=== PATIENT | male | born 1955 | race African-American/Black ===

== ENCOUNTER 2016-10-10 14:22 | Emergency (ER) | payer SELFPAY ==
[~2016-10-10] VITALS: Ht 172.7 cm; Wt 63.5 kg
[2016-10-10 15:00] VITALS: BP 136/74
--- NOTE | 2016-10-10 15:20 | PHYS DOC ---
Past Medical History Past Medical History: MT Past Surgical History: Other Additional Past Surgical Histo: CARDIAC STENT Alcohol Use: None Drug Use: None Adult General Chief Complaint Chief Complaint: FLU SYMPTOM HPI HPI Patient is a 61 year old male who presents today with body aches, coughing, nasal congestion, and subjective fevers for one week. Review of Systems Review of Systems Constitutional: Subjective fevers and body aches Eyes: Denies change in visual acuity, redness, or eye pain [] HENT: nasal congestion Respiratory: Cough Cardiovascular: No additional information not addressed in HPI [] GI: Denies abdominal pain, nausea, vomiting, bloody stools or diarrhea [] : Denies dysuria or hematuria [] Musculoskeletal: Denies back pain or joint pain [] Integument: Denies rash or skin lesions [] Neurologic: Denies headache, focal weakness or sensory changes [] Endocrine: Denies polyuria or polydipsia [] Current Medications Current Medications Current Medications Medications (Trade) Dose Ordered Sig/Rola Start Time Stop Time Status Last Admin Dose Admin Acetaminophen (Tylenol) 1,000 mg 1X ONCE 10/10/16 15:30 10/10/16 15:31 DC 10/10/16 15:34 1,000 MG Allergies Allergies Allergies Coded Allergies Type Severity Reaction Last Updated Verified No Known Drug Allergies 10/10/16 No Physical Exam Physical Exam Constitutional: Well developed, well nourished, no acute distress, non-toxic appearance. [] HENT: Normocephalic, atraumatic, bilateral external ears normal, oropharynx moist, no oral exudates, nose normal. [] Eyes: PERRLA, EOMI, conjunctiva normal, no discharge. [] Neck: Normal range of motion, no tenderness, supple, no stridor. [] Cardiovascular:Heart rate regular rhythm, no murmur [] Lungs & Thorax: Bilateral breath sounds clear to auscultation [] Abdomen: Bowel sounds normal, soft, no tenderness, no masses, no pulsatile masses. [] Skin: Warm, dry, no erythema, no rash. [] Back: No tenderness, no CVA tenderness. [] Extremities: No tenderness, no cyanosis, no clubbing, ROM intact, no edema. [] Neurologic: Alert and oriented X 3, normal motor function, normal sensory function, no focal deficits noted. [] Psychologic: Affect normal, judgement normal, mood normal. [] Current Patient Data Vital Signs Vital Signs Date Time Temp Pulse Resp B/P Pulse Ox O2 Delivery O2 Flow Rate FiO2 10/10/16 15:00 99.7 101 16 94 Room Air 99.7 Lab Values Laboratory Tests Test 10/10/16 15:08 Influenza Type A Antigen Negative (NEGATIVE) Influenza Type B Antigen Negative (NEGATIVE) EKG EKG [] Radiology/Procedures Radiology/Procedures [] Course & Med Decision Making Course & Med Decision Making Pertinent Labs and Imaging studies reviewed. (See chart for details) Patient is in the ED with multiple complaints including a productive cough, body aches, subjective fevers. Temperature in the ED is 99.7. Negative influenza A or B, chest x-ray interpreted by radiologist is negative for any acute findings. Patient was discharged with Z-Hola, albuterol inhaler, Tessalon Perles, he was instructed to take Tylenol every 4 hours and Motrin every 6 hrs. Was instructed to follow-up with his own PCP in the next 7 days. His provided return precautions and discharged in stable condition. Dragon Disclaimer Dragon Disclaimer This electronic medical record was generated, in whole or in part, using a voice recognition dictation system. Departure Departure Impression: Primary Impression: Fever Additional Impression: Acute bronchitis Disposition: 01 HOME, SELF-CARE Condition: STABLE Referrals: NO PCP (PCP) Follow-up with your doctor in the next 7 days Patient Instructions: Acute Bronchitis Additional Instructions: You were seen with symptoms consistent with acute bronchitis and fever. Take the prescribed medicines especially antibiotics until completed. Follow-up with your doctor in the next 7 days, take Tylenol every 4 hours and Motrin 6 hours as needed for pain or fever. Come back to the emergency room at any time you have concerning symptoms. 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 10/10/16 Azithromycin (Zithromax)250 Mg Tablet1 Pkg PO UD #1 PKG Prov:MUTUNGA,JD STATIONARY ENGINEER APPRENTICE 10/10/16 Benzonatate (Tessalon Perle)100 Mg Capsule1 Cap PO TID #30 CAP Prov:MUTUNGA,JD STATIONARY ENGINEER APPRENTICE 10/10/16 Albuterol Sulfate (Proair Respiclick)90 Mcg Aer.pow.ba1 Puff IH PRN Q6HRS PRN SHORTNESS OF BREATH #1 INHALER Prov:JD BELLA APRN 10/10/16 Prednisone 50 Mg Tablet1 Tab PO DAILY #5 TAB Prov:JD BELLA APRN 10/10/16 Problem Qualifiers Primary Impression: Fever Fever type: unspecified Qualified Code: R50.9 - Fever, unspecified Additional Impression: Acute bronchitis Bronchitis organism: unspecified organism Qualified Code: J20.9 - Acute bronchitis, unspecified JD BELLA APRN Oct 10, 2016 15:20
[2016-10-10] MEDS ORDERED: ACETAMINOPHEN 500 MG TABLET PO ONE (15:30)
--- NOTE | 2016-10-10 15:38 | RAD ---
Chest, 2 views, 10/10/2016: History: Flulike symptoms The heart size and pulmonary vascularity are normal. No pulmonary consolidation is seen. There is no evidence of pleural fluid. IMPRESSION: No acute cardiopulmonary abnormality is detected.
[2016-10-10 16:02] LABS: OBC FLU VALID
[2016-10-10] MEDS ORDERED: AZIT250T PO (16:29)
[2016-10-10] MEDS ORDERED: PRED50TA PO (16:29)
[2016-10-10] MEDS ORDERED: GUAI120L35 PO (16:29)
[2016-10-10] MEDS ORDERED: BENZ100C PO (16:29)
[2016-10-10] MEDS ORDERED: PROAIR RESPICL90 MCG IH (16:29)
[2016-10-11 07:40] LABS: NEGATIVE OBC STREP NEG; POSITIVE OBC STREP POS
== END 2016-10-10 16:40 | disposition home or self-care (01) ==
LOC: ER 14:22
DX: J20.9 Acute bronchitis, unspecified (principal); I25.2 Old myocardial infarction; Z95.5 Presence of coronary angioplasty implant and graft
CPT/HCPCS: 71020; 87070; 87804; 87880; 99285-25

== ENCOUNTER 2018-01-30 13:53 | Emergency (ER) | payer SELFPAY | END 2018-01-30 16:28 | disposition home or self-care (01) | LOC: ER 13:53 | DX: S13.9XXA Sprain of joints and ligaments of unspecified parts of neck, initial encounter (principal); M54.5 Low back pain; I25.2 Old myocardial infarction; V79.59XA Passenger on bus injured in collision with other motor vehicles in traffic accident, initial encounter; Y93.89 Activity, other specified; Y92.488 Other paved roadways as the place of occurrence of the external cause; Y99.8 Other external cause status | CPT/HCPCS: 72100; 72125; 99284 ==